=== PATIENT | female | born 1955 | race Two or more races ===

== ENCOUNTER 2019-04-10 08:37 | Inpatient (IN) | payer OTHER ==
[~2019-04-10] VITALS: Ht 160 cm; Wt 81.2 kg
[2019-04-10] MEDS ORDERED: HYZAAR 100-251 EACH PO (08:55)
[2019-04-10] MEDS ORDERED: FORTAMET1000 MG PO (08:55)
--- NOTE | 2019-04-10 08:55 | NUR ---
SE RECIBE AL PACIENTE CON REFERIDO DEL DR. HEYDI MARTINI MD. PARA SE ADMITIDA Y RECIBIR TRATAMIENTO POR OBSTRUCION Y ANEMIA DEBIDO A MASA.
--- NOTE | 2019-04-10 09:37 | NUR ---
SE RECIBE PE FEMENINA DE 63 YRS ALERTA CONCIENTE Y TRANQUILO EN COPANIA DE FAMILIAR PTE ES EVALUADA POR EL SHAYLA ANTOINE QUIEN ORDENA TRATAMIENTO LA CUAL SE EJECUTA. SE MANTIENE BAJO OBSRVACION.
== END 2019-04-19 13:54 | disposition home health service (06) | DRG 330 ==
LOC: ER 08:37 → SURH 11:17 → MEDJ 11:17 → SURH 11:52
PROVIDERS: Urology; ADMIT Surgery
PROC: BW21Y0Z Computerized Tomography (CT Scan) of Abdomen and Pelvis using Other Contrast, Unenhanced and Enhanced (ICD-10-PCS; 2019-04-10)
PROC: 02HV33Z Insertion of Infusion Device into Superior Vena Cava, Percutaneous Approach (ICD-10-PCS; 2019-04-11)
PROC: 3E0436Z Introduction of Nutritional Substance into Central Vein, Percutaneous Approach (ICD-10-PCS; 2019-04-11)
PROC: B54CZZZ Ultrasonography of Left Lower Extremity Veins (ICD-10-PCS; 2019-04-11)
PROC: 30233N1 Transfusion of Nonautologous Red Blood Cells into Peripheral Vein, Percutaneous Approach (ICD-10-PCS; 2019-04-11)
PROC: 0D1L4Z4 Bypass Transverse Colon to Cutaneous, Percutaneous Endoscopic Approach (ICD-10-PCS; principal; 2019-04-14 16:30)
PROC: 0T778DZ Dilation of Left Ureter with Intraluminal Device, Via Natural or Artificial Opening Endoscopic (ICD-10-PCS; 2019-04-14 16:30)
DX: K56.690 Other partial intestinal obstruction (principal); N13.2 Hydronephrosis with renal and ureteral calculous obstruction; B20 Human immunodeficiency virus [HIV] disease; N17.8 Other acute kidney failure; C18.7 Malignant neoplasm of sigmoid colon; E44.0 Moderate protein-calorie malnutrition; R18.8 Other ascites; C78.6 Secondary malignant neoplasm of retroperitoneum and peritoneum; E03.8 Other specified hypothyroidism; D50.0 Iron deficiency anemia secondary to blood loss (chronic); I11.9 Hypertensive heart disease without heart failure; I87.2 Venous insufficiency (chronic) (peripheral); E11.65 Type 2 diabetes mellitus with hyperglycemia; Z79.4 Long term (current) use of insulin